=== PATIENT | female | born 1955 | race Caucasian/White ===

== ENCOUNTER 2019-04-06 11:32 | Emergency (ER) | payer OTHER ==
[~2019-04-06] VITALS: Ht 160 cm; Wt 136.1 kg
[2019-04-06] MEDS ORDERED: RANITIDINE HCL300 MG PO (11:51)
[2019-04-06] MEDS ORDERED: ZYRTEC 10 MG TA10 MG PO (11:52)
[2019-04-06] MEDS ORDERED: TRAMADOL 50 MG50 MG PO (11:52)
[2019-04-06] MEDS ORDERED: VALSARTAN-HCTZ1 EACH PO (11:52)
[2019-04-06] MEDS ORDERED: SINGULAIR 10 MG10 MG PO (11:52)
[2019-04-06] MEDS ORDERED: AMITRIPTYLINE100 MG PO (11:53)
[2019-04-06] MEDS ORDERED: BENADRYL25 MG PO (11:53)
[2019-04-06] MEDS ORDERED: TIROSINT150 MCG PO (11:53)
[2019-04-06] MEDS ORDERED: ERYTHROMYCIN E3.5 G3 OPHTHALMIC (12:03)
[2019-04-06 12:26] VITALS: BP 122/76
== END 2019-04-06 12:29 | disposition home or self-care (01) ==
LOC: M.ERS 11:32
DX: H01.9 Unspecified inflammation of eyelid (principal); E03.9 Hypothyroidism, unspecified; G89.29 Other chronic pain; I10 Essential (primary) hypertension; Z98.890 Other specified postprocedural states; Z90.49 Acquired absence of other specified parts of digestive tract; Z90.710 Acquired absence of both cervix and uterus